=== PATIENT | female | born 1980 | race African-American/Black ===

== ENCOUNTER 2022-09-04 16:36 | Emergency (ER) | payer SELFPAY ==
[2022-09-04 16:49] VITALS: BP 203/102; PULSE 88; RESP 16; TEMP 37.2; O2SAT 97
--- NOTE | 2022-09-04 16:49 | ED.SKABFB ---
HPI - Skin/Abscess/Foreign Bdy General Chief complaint: Skin/Abscess/Foreign Body Stated complaint: Rash Time Seen by Provider: 09/04/22 16:49 Source: patient Mode of arrival: ambulatory Limitations: no limitations History of Present Illness HPI narrative: Patient is a 42-year-old female that presents with full body itching feeling like she is being stuck with tiny needles. Has been taking Claritin and Benadryl daily for the last 3 days. Have washed all other sheets and denies new environmental factors. Denies any shortness of breath. Concern for scabies due to working in [employer]. Related Data Allergies Allergy/AdvReac Type Severity Reaction Status Date / Time No Known Allergies Allergy Verified 09/04/22 18:10 Review of Systems Review of Systems: All systems reviewed & are unremarkable except as noted in HPI and below Constitutional: Constitutional: Denies body ache(s), Denies chills, Denies fatigue, Denies fever(s), Denies headache(s), Denies malaise and Denies weakness Eyes: Eyes: Denies blurry vision, Denies irritation and Denies loss of vision ENT: Denies otalgia, Denies headache(s), Denies nasal discharge, Denies sinus pain and Denies sore throat Cardiovascular: Cardiovascular: Denies chest pain, Denies irregular heart rhythm and Denies dyspnea Respiratory: Respiratory: Denies dyspnea Gastrointestinal: Gastrointestinal: Denies abdominal pain, Denies melena, Denies hematochezia, Denies diarrhea, Denies nausea and Denies vomiting Musculoskeletal: Musculoskeletal: Denies back pain, Denies myalgias and Denies arthralgias Integumentary/Breasts: Skin/Breast: Reports pruritus and Denies rash Neurologic: Denies headache(s), Denies loss of vision and Denies weakness Psychiatric: Psychiatric: Reports no additional psychiatric complaints Endocrine: Endocrine: Denies fatigue PMFSH Comments At time of signature, agree with nursing past medical, surgical, social and family history. There is no relevant family history pertinent to the presenting complaint. Exam Const: General: cooperative, healthy appearing, comfortable, no acute distress and well nourished Nutritional Appearance: well nourished Orientation/consciousness: patient oriented x3 Limitations: no limitations HENMT: Head: normal to inspection, normocephalic and atraumatic Ears: hearing grossly normal bilaterally and external ears normal Face/Nose/Sinus: Normal external nose present, normal facial exam and face symmetric Face and sinus: normal facial exam and face symmetric Mouth: Yes lip normal Eyes: General: appearance normal, both eyes and all related structures Alignment and Position: alignment normal and position normal Periorbital: periorbital findings normal Eyelids: eyelids normal Pupils: Equal, round and reactive pupils present EOM: EOMs intact bilaterally Neck: Neck: normal visual inspection, full ROM and supple Chest: Chest palpation & inspection: normal inspection of the chest Resp: Effort & Inspection: normal respiratory effort and able to speak in complete sentences Auscultation: clear to auscultation bilaterally Cardio: Rate: regular rate Rhythm: regular rhythm Heart sounds: S1 normal heart sound present and S2 normal heart sound present GI: Inspection: normal to inspection Skin: General skin exam: normal color and no rashes or lesions noted Neuro: General: patient oriented x3 and moves all extremities Cranial nerves: Yes Equal, round and reactive pupils present Speech: normal speech Gait exam (Neuro): Normal gait present Extrem: General: normal to inspection, full ROM and no edema Psych: Appearance: grossly normal and well kempt Mental Status: mental status grossly normal Speech and movement: Normal speech and movement present Affect: normal affect Attitude: cooperative Thought process: Normal thought process present Course Course Emergency Course: Patient is aware of diagnosis, understands and agrees to treatmen
[2022-09-04 18:03] VITALS: BP 224/112; PULSE 75; O2SAT 100
== END 2022-09-04 18:15 | disposition home or self-care (01) ==
PROVIDERS: Emergency Provider Nurse Practitioner Family
DX: L29.9 Pruritus, unspecified (principal); T78.40XA Allergy, unspecified, initial encounter; I10 Essential (primary) hypertension
CPT/HCPCS: 99213; G0463

== ENCOUNTER 2022-09-15 07:09 | Emergency (ER) | payer SELFPAY ==
[2022-09-15] VITALS (15 sets, daily range): BP systolic 191–234; BP diastolic 101–128; PULSE 67–107; RESP 10–27; TEMP 36.4–36.8; O2SAT 100
--- NOTE | ~2022-09-15 | XR_ITS ---
Portable chest x-ray Comparison: None Clinical History: Chest pain Findings: Lungs are clear, without focal consolidation or pleural effusion. Cardiomediastinal silho uette is stable. Bones and soft tissues are unremarkable. Impression: Normal chest. Reviewed, dictated and finalized at location M. Impression: Normal chest.
--- NOTE | 2022-09-15 07:26 | ECG_ITS ---
Measurements Intervals [place] Rate: 85 P: 39 [place]: 139 QRS: -13 QRSD: 98 T: 101 QT: 375 QTc: 446 Interpretive Statements SINUS RHYTHM POSSIBLE LEFT ATRIAL ENLARGEMENT [-0.1mV P-WAVE IN V1/V2] LEFT VENTRICULAR HYPERTROPHY AND ST-T CHANGE [VOLTAGE CRITERIA PLUS ST/T ABNORMALITY] NO PREVIOUS ECG AVAILABLE FOR COMPARISON Electronically Signed On 09-15-2022 15:03:29 CDT by Melanie Thomas M.D.
--- NOTE | 2022-09-15 07:26 | ED.ARRPALP ---
HPI - Arrhythmia/Palpitations General Chief Complaint: Chest Pain Stated Complaint: CP Time Seen by Provider: 09/15/22 07:09 History of Present Illness HPI narrative: Pt presents with feeling of heart racing and feeling lightheaded and dizzy this morning while getting ready for work. Pt denies CP or SOB. Pt denies LOC or SOLOIRO. Pt feels better now. Related Data Allergies Allergy/AdvReac Type Severity Reaction Status Date / Time No Known Allergies Allergy Verified 09/04/22 18:10 Review of Systems Review of Systems: All systems reviewed & are unremarkable except as noted in HPI and below Exam Const: General: healthy appearing Nutritional Appearance: well nourished Orientation/consciousness: patient oriented x3 Limitations: no limitations Eyes: EOM: EOMs intact bilaterally Resp: Effort & Inspection: normal respiratory effort Auscultation: clear to auscultation bilaterally Cardio: Rate: tachycardic Rhythm: regular rhythm GI: Auscultation: normal bowel sounds Skin: General skin exam: normal color Rashes: no rashes Neuro: General: patient oriented x3, moves all extremities, no meningeal signs and CN's II-XI intact bilaterally Cranial nerves: Yes Nystagmus not present Speech: normal speech Extrem: General: normal to inspection Psych: Mental Status: mental status grossly normal Affect: normal affect Attitude: cooperative Course Course Emergency Course: Pt feels fine. Pt will check BP later today when not in ER. If still high will follow up with PCP. Placed on holter. Vital Signs Vital signs: Vital Signs Pulse Rate 86 09/15/22 07:16 Respiratory Rate 12 09/15/22 07:16 Temperature 97.6 F 09/15/22 10:40 Pulse Rate 68 09/15/22 10:40 Respiratory Rate 16 09/15/22 10:40 Blood Pressure 191/103 H 09/15/22 10:40 Pulse Oximetry 100 09/15/22 10:40 Oxygen Delivery Room Air 09/15/22 07:35 MDM - Arrhythmia/Palpitations MDM Narrative Medical decision making narrative: labs look good and pt better after ekg unremarkable and labs slight low k which was treated, WBC seems stress reaction and not infectious. Pt will follow BP and track away from ER. If remains elevated needs to follow up for medication adjustment. Pt agrees with plan to place on holter and discharge home Differential Diagnosis Differential diagnosis: Likely palpitations, anxiety, sinus tachycardia, artial fibrillation and WPW Medical Records Attestation: I reviewed the patient's medical records. Medical records narrative: no prior EKG Lab Data Attestation: I reviewed the patient's lab results. 09/15/22 07:31 09/15/22 07:31 Labs: Lab Results 09/15/22 Range/Units 07:31 WBC 16.5 H (4.5-10.0) K/mm3 RBC 4.73 (4.2-5.4) M/mm3 Hgb 10.2 L (12.0-15.0) g/dL Hct 33.9 L (37.0-47.0) % MCV 71.7 L (80-100) fl MCH 21.6 L (26-34) pg MCHC 30.1 L (32-36) g/dl RDW 17.0 H (11.5-14.5) % Plt Count 511 H (150-375) k/mm3 MPV 9.8 (7.4-10.4) fl Immature Gran % (Auto) 0.4 (0-0.5) % Neut % (Auto) 73.3 H (45.5-73.1) % Lymph % (Auto) 18.7 (18.3-44.2) % Mcduffie % (Auto) 5.8 (2.6-8.5) % Eos % (Auto) 1.1 (0-4.4) % Baso % (Auto) 0.7 (0.2-1.2) % Lymph # (Auto) 3.09 (0.9-3.2) K/mm3 [place]duffie # (Auto) 1.0 H (0.1-0.6) K/mm3 Eos # (Auto) 0.2 (0-0.3) K/mm3 Baso # (Auto) 0.1 (0.0-0.1) K/mm3 Abs Immat Gran (auto) 0.07 H (0.00-0.031) K/mm3 Absolute Neuts (auto) 12.1 H (1.3-6.7) K/mm3 Absolute Nucleated RBC 0.0 (0.0-0.012) K/mm3 Nucleated RBC % 0.0 (0.0-0.2) % Platelet Estimate Adequate (Adequate) Hypochromasia 1+ (NORMAL) Anisocytosis 1+ (NORMAL) Target Cells 1+ (NORMAL) Ovalocytes 1+ (NORMAL) Schistocytes None seen (NORMAL) PT 12.9 (11.1-14.7) Seconds INR 0.9 APTT 22.3 (22.3-36.8) SECONDS Sodium 136 L (137-145) mmol/L Potassium 3.0 L (3.4-5.0) mmol/L Chloride 95 L (98-107) mmol/L Carbon Dioxide 35 H
[2022-09-15] MEDS: SODIUM CHLORIDE 0.9% IV 1,000 ML 999 ML IV CONT (07:34)
[2022-09-15 07:37] LABS: Basophils Absolute Auto 0.1 K/mm3 (0.0-0.1); Basophils Percent Auto 0.7 % (0.2-1.2); Eosinophils Absolute Auto 0.2 K/mm3 (0-0.3); Eosinophils Percent Auto 1.1 % (0-4.4); Hematocrit 33.9 % (37.0-47.0); Hemoglobin 10.2 g/dL (12.0-15.0); Immature Granulocyte Absolute 0.07 K/mm3 (0.00-0.031); Immature Granulocyte Percent A 0.4 % (0-0.5); Lymphocytes Absolute Auto 3.09 K/mm3 (0.9-3.2); Lymphocytes Percent Auto 18.7 % (18.3-44.2); Mean Corpuscular HGB Conc 30.1 g/dl (32-36); Mean Corpuscular Hemoglobin 21.6 pg (26-34); Mean Corpuscular Volume 71.7 fl (80-100); Mean Platelet Volume 9.8 fl (7.4-10.4); Monocytes Percent Auto 5.8 % (2.6-8.5); Neutrophils Absolute Auto 12.1 K/mm3 (1.3-6.7); Neutrophils Percent Auto 73.3 % (45.5-73.1); Platelet Count Result 511 k/mm3 (150-375); Red Blood Count 4.73 M/mm3 (4.2-5.4); White Blood Count 16.5 K/mm3 (4.5-10.0)
[2022-09-15 07:48] LABS: Alanine Aminotransferase 31 U/L (6-35); Albumin Level 4.6 g/dL (3.5-5.1); Alkaline Phosphatase 128 U/L (38-126); Anion Gap 6 mmol/L (8-16); Aspartate Amino Transferase 40 U/L (14-36); Bilirubin,Total 0.8 mg/dL (0.2-1.3); Blood Urea Nitrogen 12 mg/dL (7-17); Calcium 9.4 mg/dL (8.4-10.2); Carbon Dioxide 35 mmol/L (22-30); Chloride 95 mmol/L (98-107); Estimated CRCL calculation 87 ml/min; Estimated Glomerular Filt Rate > 60; Glucose 146 mg/dL (65-110); Sodium 136 mmol/L (137-145)
[2022-09-15 07:52] LABS: Platelet Estimate Adequate (Adequate)
[2022-09-15 07:53] LABS: Anisocytosis 1+ (NORMAL); Hypochromasia 1+ (NORMAL); Ovalocytes 1+ (NORMAL); Schistocytes None Seen (NORMAL); Target Cells 1+ (NORMAL)
[2022-09-15 07:54] LABS: INR 0.9; Prothrombin Time 12.9 Seconds (11.1-14.7)
[2022-09-15 07:55] LABS: Partial Thromboplastin Time 22.3 SECONDS (22.3-36.8)
[2022-09-15 07:59] LABS: Troponin I < 0.012 ng/mL (0.000-0.034)
[2022-09-15] MEDS: POTASSIUM CHLORIDE 20 MEQ ER TABLET PO (09:25)
[2022-09-15] MEDS: METOPROLOL SUCCINATE EXT REL 50 MG TABCR PO (09:26)
== END 2022-09-15 10:46 | disposition home or self-care (01) ==
PROVIDERS: Emergency Provider Emergency Medicine
DX: R00.2 Palpitations (principal); I51.7 Cardiomegaly; R94.31 Abnormal electrocardiogram [ECG] [EKG]
CPT/HCPCS: 36415; 71045; 80053; 84484; 85025; 85610; 85730; 93005; 93225; 93226; 96360; 99284; A9270; J7030

== ENCOUNTER 2022-09-17 08:08 | Observation (INO) | payer SELFPAY ==
[2022-09-17] VITALS (32 sets, daily range): BP systolic 145–224; BP diastolic 85–119; PULSE 64–100; RESP 12–22; TEMP 36.1–36.6; O2SAT 98–100; BMI 27.1
--- NOTE | ~2022-09-17 | MR_ITS ---
MRI of the thoracic spine Clinical History: Paresthesia Technique: Axial T2-weighted and gradient images, and sagittal T1-weighted, T2-weighted, and STIR eden ges were acquired. Following intravenous administration of 14 cc MultiHance gadolinium, T1-weighted f at-sat imaging was performed in the axial and sagittal planes. Findings: There is no fracture or subluxation of the thoracic spine. Vertebral bodies maintain normal height and alignment. No focal/suspicious bone marrow signal abnormality seen. No disc bulge or herniation seen at any thoracic level. No spinal canal stenosis or cord compression identified. No abnormal signal seen in the spinal cord. No epidural mass or collection seen. Paravertebral soft t issues are unremarkable. No abnormal postcontrast enhancement identified. Impression: Unremarkable exam. Reviewed, dictated and finalized at [facility]. Impression: Unremarkable exam.
--- NOTE | ~2022-09-17 | MR_ITS ---
MRI of the brain Clinical History: Paresthesia, left lower extremity numbness Technique: Axial and sagittal T1-weighted images were acquired. These were followed by axial T2-weigh poppy, diffusion weighted, gradient, and FLAIR images. Findings: No abnormal signal seen in the brain parenchyma. No acute infarct, intracranial hemorrhage, or mass lesion. Ventricles and subarachnoid spaces are unremarkable. Orbits are unremarkable. Paranasal sinuses and m astoid air cells are clear. Major intracranial flow voids are intact. Sagittal midline structures are intact. IMPRESSION: Unremarkable exam. Reviewed, dictated and finalized at location M. IMPRESSION: Unremarkable exam.
--- NOTE | ~2022-09-17 | MR_ITS ---
MRI of the cervical spine Clinical History: Paresthesia Technique: Axial T2-weighted and gradient images, and sagittal T1-weighted, T2-weighted, and STIR eden ges were acquired. Following intravenous administration of 14 cc MultiHance gadolinium, T1-weighted f at-sat imaging was performed in the axial and sagittal planes. Findings: There is no fracture or subluxation of the cervical spine. There is mild reversal of the no rmal cervical lordosis. No focal/suspicious bone marrow signal abnormality seen. There is mild diffus e T1 hypointensity, which could reflect underlying anemia. At C2-C3 and C3-C4, there is no disc bulge or herniation. No spinal canal stenosis, cord compression, or neural foraminal narrowing at these levels. At C4-C5, there is minimal disc osteophyte complex, with probable minimal flattening the ventral cord . Bilateral neural foramina are preserved. At C5-C6, there is mild disc osteophyte complex with probable minimal flattening the ventral cord. Bi lateral neural foramina are preserved. At C6-C7, there is no disc bulge or herniation. No spinal canal stenosis, cord compression, or neural foraminal narrowing. No abnormal signal seen in the spinal cord. No epidural mass or collection. Paravertebral soft tissue s are unremarkable. No abnormal postcontrast enhancement identified. Impression: Minimal flattening of the ventral cord at C4-C5 and C5-C6 related to mild disc osteophyte complexes a t these levels. Reviewed, dictated and finalized at [facility]. Impression: Minimal flattening of the ventral cord at C4-C5 and C5-C6 related to mild disc osteophyte complexes at these levels.
--- NOTE | ~2022-09-17 | US_ITS ---
EXAMINATION: US retroperitoneal duplex ltd DATE: 09/18/2022 10:41 INDICATION: Hypertensive urgency TECHNIQUE: Multiple grayscale, color Doppler, and pulsed Doppler images of the kidneys and renal steffen andrew were obtained. COMPARISON: None. FINDINGS: The right renal artery peak systolic velocity is 154 cm/s in the proximal segment, 178 cm/s in the mi d segment, and 134 cm/s in the distal segment. The left renal artery peak systolic velocity is 96 cm/ s in the proximal segment, 93 cm/s in the mid segment, and under 28 cm/s in the distal segment. Incid entally noted 1.6 cm anechoic cyst at the upper pole the right kidney. The bladder is partially decom pressed. Visualized portions of the anteverted uterus is unremarkable. IMPRESSION: 1. No Doppler evidence of renal artery stenosis. Reviewed, dictated and finalized at location A.
--- NOTE | ~2022-09-17 | CT_ITS ---
Non-contrast Head CT History: Headache, paresthesia Technique: Axial non-contrast imaging of the brain was performed. Dose reduction technique was used on this scan by utilizing automated exposure control and iterative reconstruction technique. The dose -length product (DLP) was 605.33 mGy-cm. Findings: There is no evidence of intracranial hemorrhage, mass lesion, or acute infarct. Brain par enchyma appears normal. The ventricles and subarachnoid spaces are normal in size. The calvarium ap pears normal. The visualized paranasal sinuses and mastoid air cells are clear. Impression: No significant abnormality seen. Reviewed, dictated and finalized at location . Impression: No significant abnormality seen.
--- NOTE | 2022-09-17 08:18 | ECG_ITS ---
Measurements Intervals [place] Rate: 90 P: 34 [place]: 131 QRS: -7 QRSD: 86 T: 142 QT: 356 QTc: 437 Interpretive Statements SINUS RHYTHM LEFT VENTRICULAR HYPERTROPHY AND ST-T CHANGE [VOLTAGE CRITERIA PLUS ST/T ABNORMALITY] COMPARED TO ECG 09/15/2022 07:15:02 NO SIGNIFICANT CHANGES Electronically Signed On 09-17-2022 13:23:28 CDT by Melanie Thomas M.D.
[2022-09-17 08:43] LABS: Basophils Absolute Auto 0.1 K/mm3 (0.0-0.1); Basophils Percent Auto 0.8 % (0.2-1.2); Eosinophils Absolute Auto 0.3 K/mm3 (0-0.3); Eosinophils Percent Auto 2.4 % (0-4.4); Hematocrit 33.8 % (37.0-47.0); Hemoglobin 10.1 g/dL (12.0-15.0); Immature Granulocyte Absolute 0.06 K/mm3 (0.00-0.031); Immature Granulocyte Percent A 0.4 % (0-0.5); Lymphocytes Absolute Auto 3.54 K/mm3 (0.9-3.2); Lymphocytes Percent Auto 26.1 % (18.3-44.2); Mean Corpuscular HGB Conc 29.9 g/dl (32-36); Mean Corpuscular Hemoglobin 22.1 pg (26-34); Mean Corpuscular Volume 73.8 fl (80-100); Mean Platelet Volume 10.3 fl (7.4-10.4); Monocytes Absolute Auto 0.9 K/mm3 (0.1-0.6); Monocytes Percent Auto 6.3 % (2.6-8.5); Neutrophils Absolute Auto 8.7 K/mm3 (1.3-6.7); Platelet Count Result 485 k/mm3 (150-375); Red Blood Count 4.58 M/mm3 (4.2-5.4); Red Cell Distribution Width 17.4 % (11.5-14.5); White Blood Count 13.6 K/mm3 (4.5-10.0)
--- NOTE | 2022-09-17 08:50 | PC.NURSE ---
EDP at bedside to assess pt.
[2022-09-17 08:55] LABS: Platelet Estimate Increased (Adequate)
[2022-09-17 08:56] LABS: Alanine Aminotransferase 26 U/L (6-35); Albumin Level 4.7 g/dL (3.5-5.1); Alkaline Phosphatase 116 U/L (38-126); Anion Gap 8 mmol/L (8-16); Anisocytosis 1+ (NORMAL); Aspartate Amino Transferase 31 U/L (14-36); Bilirubin,Total 0.6 mg/dL (0.2-1.3); Blood Urea Nitrogen 8 mg/dL (7-17); Calcium 9.6 mg/dL (8.4-10.2); Carbon Dioxide 31 mmol/L (22-30); Chloride 99 mmol/L (98-107); Estimated CRCL calculation 86 ml/min; Estimated Glomerular Filt Rate > 60; Glucose 180 mg/dL (65-110); Hypochromasia 1+ (NORMAL); Microcytosis 1+ (NORMAL); Potassium 3.2 mmol/L (3.4-5.0); Schistocytes None Seen (NORMAL); Sodium 138 mmol/L (137-145)
[2022-09-17 09:02] LABS: Appearance Urine Clear (Clear); Bacteria Urine None Seen /hpf; Bilirubin Urine Negative (Negative); Blood Urine Negative (Negative); Color Urine Yellow (Yellow); Glucose Urine UA 2+ mg/dL (Negative); Ketones Urine 1+ mg/dL (Negative); Leukocyte Esterase Ur Negative LEU/UL (Negative); Nitrate Urine Negative (Negative); Non Pathogenic Casts 0-2; Protein Urine 1+ mg/dL (Negative); RBC Urine 0-2 /hpf (0-2); Specific Grav Ur 1.022 (1.001-1.035); Squamous Epithelial Cell Urine Occasional /hpf (Few); WBC Urine 0-5 /hpf; pH Urine 6.5 (5.0-9.0)
[2022-09-17 09:05] LABS: Add Urine Microscopic? YES
[2022-09-17] MEDS: hydrALAZINE HCL 20 MG/ML VIAL 10 MG IV PUSH (09:15)
--- NOTE | 2022-09-17 10:17 | ED.GENADULT ---
HPI - General Adult General Chief complaint: Unspecified Stated complaint: tingling Time Seen by Provider: 09/17/22 08:22 History of Present Illness HPI narrative: Patient is a 42-year-old female who presents ER with whole body tingling. She reports she was seen here couple days ago for elevated heart rate and also tingling in her legs. She reports that her blood pressures been running in the systolics around 200 mmHg. This is not improved since she has been at home. Today the tingling now encompasses her entire body and is distressing. She also has mild headache. Patient takes metoprolol at home daily to treat blood pressure. Last dose was yesterday. She has no chest pain or chest pressure. No exertional discomfort. No loss of consciousness. No focal numbness or weakness in arm or leg. Patient was given a Holter monitor but has not had any palpitations. Related Data Home Medications Medication Instructions Recorded Confirmed metoprolol succinate 50 mg 50 mg PO DAILY 09/17/22 09/17/22 tablet,extended release 24 hr Allergies Allergy/AdvReac Type Severity Reaction Status Date / Time No Known Allergies Allergy Verified 09/17/22 08:18 Review of Systems Review of Systems: All systems reviewed & are unremarkable except as noted in HPI and below Constitutional: Constitutional: Denies chills and Denies fever(s) ENT: Denies nasal congestion and Denies sore throat Cardiovascular: Cardiovascular: Denies chest pain, Denies rapid heart rate and Denies radiating jaw, neck or arm pain Gastrointestinal: Gastrointestinal: Denies abdominal pain, Denies nausea and Denies vomiting Neurologic: Reports headache(s), Denies lack of coordination, Denies focal weakness, Denies Sensory deficit (Neuro) and Reports tingling PMFSH Past Medical History Medical History (Updated 09/17/22 @ 14:31 by Roula Vasquez PA-C) Hypertension Surgical History Surgical History (Updated 09/17/22 @ 17:16 by Roula Vasquez PA-C) History of tubal ligation Family History Family History (Updated 09/17/22 @ 17:17 by Roula Vasquez PA-C) Sibling Diabetes mellitus Hypertension Grandparent Diabetes mellitus Hypertension Mother Hypertension Cerebrovascular accident Social History Social History (Updated 09/17/22 @ 17:18 by Roula Vasquez PA-C) Social History: Surrogate medical decision maker: Darrell Yan, spouse. Code status: Full code. Years smoked: 20 Smoking status: Current every day smoker Tobacco type: cigarettes Second hand tobacco smoke exposure: No Alcohol intake: current Drinks per week: 5 Substance use: never Lack of Transportation: No Lack of Food: Never True Current Housing: I Have Housing Concerned About Future Housing: No Difficulty Paying Gas/Electric Bills: No Difficulty Paying for Meds: No Currently Unemployed: No Education: Decline to Answer Difficulty w/ Childcare or Family Care: No Additional living arrangements comments: Lives with and 2 of their children in [place]. 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 Spiritual care concerns: No Exam Narrative: GENERAL: Well-appearing, well-nourished, and in no acute distress. HEAD: Normocephalic, atraumatic. EYES: PERRL and EOMI. ENT: Mucous membranes moist. CHEST: Clear to auscultation. No respiratory distress. HEART: Regular rate and rhythm. Normal peripheral pulses. ABDOMEN: Soft, nontender, nondistended. EXTREMITIES: Normal range of motion. No edema. SKIN: Warm, dry, no rash. NEURO: No upper or lower extremity drift. Normal finger-nose testing and [id number] testing. Gross sensation intact. No facial droop. Clear speech without expressive aphasia. Alert and oriented x3. PSYCH: Normal mood and affect. Course Course Emergency Course: Discussed case with Dr. Arango at the hospitalist service. Admit for observation. Patient is ta
--- NOTE | 2022-09-17 11:01 | PC.NURSE ---
Patient report given to ROLANDO Katz. All questions answered and care of patient transferred.
[2022-09-17] MEDS: amLODIPine BESYLATE 2.5 MG TABLET PO ×2 (11:08→20:45)
[2022-09-17] MEDS: METOPROLOL SUCCINATE EXT REL 50 MG TABCR PO (11:08)
[2022-09-17] MEDS: HYDROcodone/acetaminophen (*CRX) 5-325 MG TABLET 1 TAB PO ×2 (11:13→19:54)
--- NOTE | 2022-09-17 13:36 | PC.NURSE ---
ordered pt. lunch tray.
--- NOTE | 2022-09-17 14:18 | PM.IMHP ---
H&P: HPI History of Present Illness Date/Time: 09/17/22 14:00 Chief Complaint: Paresthesias. Narrative: This is a 42-year-old female with hypertension who presented to the emergency department via private vehicle from home for evaluation of paresthesias. The patient provides the following history. She has feelings of pins and needles ?everywhere, even in my face? with sensations of numbness in the left legs and upper extremities. She was evaluated at urgent care on 09/04/2022 with itching and feelings as though she was being stuck with tiny needles. 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 None the less she was discharged with permethrin cream and 5 days of prednisone 40 mg. She was seen in the ED just 2 days ago with sensations of racing heart, lightheadedness, and dizziness while getting ready for work. Her potassium was a bit low at that time and was replaced. She felt better on discharge and she was sent home with a 24 hour Holter monitor. Unfortunately she continues to have random episodes of pins and needles, numbness, and she also reports having a pretty significant headache with occasional dizziness. It should be noted that her blood pressures have been persistently elevated in the 210-220s over low 100s with each of these recent visits. She is on metoprolol 50 mg daily of which she states compliance. She was diagnosed with hypertension at the age of 22 and she admits that she only checks her blood pressure once every couple of months however it is typically in the 130s to 140 systolic. Given her continued symptoms and uncontrolled hypertension she is being admitted for further treatment and evaluation. Brain CT today showed no acute findings. EKG shows a sinus rhythm with changes consistent with left ventricular hypertrophy. In the ED she received a dose of IV hydralazine 10 mg, her p.o. dose of metoprolol, and amlodipine 2.5 mg. Her blood pressure has since improved to 180/99. At the time my evaluation she complains of a diffuse, throbbing headache. She continues to have paresthesias in the upper extremities, left leg, and she also reports sensation changes on the left side of her trunk ?it feels like it is wet in this area but it is not.? She denies vertigo, focal weakness, blurry vision, facial droop, difficulty speaking and swallowing, chest pain, palpitations, and sweats, racing heart, flushing, and weight changes. She has no known history of thyroid disease, multiple sclerosis, Enzo's, hyperaldosteronism, or sleep apnea. Review of Systems Review of Systems: Twelve systems were reviewed. No fever, chills, or sweats. No recent cold or flu symptoms. Last menstrual period was 09/06/2022. She does tend to have heavier periods that is not new for her. She has no known history anemia and has never had a blood transfusion. No hematuria. She has not noticed foamy urine. Except as documented, all other systems were reviewed and are negative. [facility] Past Medical History Medical History (Updated 09/17/22 @ 14:31 by Roula Vasquez PA-C) Hypertension Surgical History Surgical History (Updated 09/17/22 @ 17:16 by Roula Vasquez PA-C) History of tubal ligation Family History Family History (Updated 09/17/22 @ 17:17 by Roula Vasquez PA-C) Sibling Diabetes mellitus Hypertension Grandparent Diabetes mellitus Hypertension Mother Hypertension Cerebrovascular accident Social History Social History (Updated 09/17/22 @ 17:18 by Roula Vasquez PA-C) Social History: Surrogate medical decision maker: Darrell Yan, spouse. Code status: Full code. Years smoked: 20 Smoking status: Current every day smoker Tobacco type: cigarettes Second hand tobacco smoke exposure: No Alcohol intake: current Drinks per week: 5 Substance use: never Lack of Transportation: No Lack of Food: Never True Current Housing: I Have Housing Concerned Abo
[2022-09-17] MEDS: POTASSIUM CHLORIDE 20 MEQ ER TABLET 40 MEQ PO (15:17)
--- NOTE | 2022-09-17 15:46 | ADMGEN ---
This patient, Sandra Yan, was admitted to IMU Room 205-01 @ 1545. Patient oriented to hospital policies and general routines including ID bracelet, bed and alarms, visiting hours, pain management, procedures, bathroom and other care routines, personal items, smoking policy, room service/diet, and visiting hours. Information on how to activate the Rapid Response Team has been discussed. Patient are encouraged to report perceived risks to care and to ask questions if they do not understand what they are told or what they should do.
--- NOTE | 2022-09-17 16:15 | WPDHOLTEREM ---
Holter/Event Monitor Holter/Event Monitor Date of procedure: 09/15/22 Holter/Event Procedure: 24 Hr Holter Monitor Indications: Fast Heart Rate Conclusion: 1. 24 hour holter monitor on 09/15/22. 2. Underlying rhythm is sinus rhythm. HR range 52-115 bpm; average HR 68 bpm. 3. There are 1 premature supraventricular complex and 5 supraventricular couplets. No supraventricular tachycardia. 4. There is 1 premature ventricular complex. No ventricular tachycardia. 5. No sinoatrial or atrioventricular blocks. No significant pauses greater than 2 seconds. 6. No symptoms available for correlation.
[2022-09-17] MEDS: hydrALAZINE HCL 20 MG/ML VIAL 5 MG IV PUSH (17:11)
[2022-09-17 17:33] LABS: Hemoglobin A1C 5.9 % (<5.7)
[2022-09-17 17:35] LABS: Iron 36 ug/dL (37-170)
[2022-09-17 17:46] LABS: Percent Iron Saturation 7 % (20-50)
[2022-09-17 18:11] LABS: Folic Acid 8.6 ng/mL (2.76->20)
[2022-09-17 18:12] LABS: Ferritin 8.55 ng/mL (6.24-137)
[2022-09-17] MEDS: ACETAMINOPHEN 325 MG TABLET 650 MG PO (20:46)
[2022-09-18] VITALS (14 sets, daily range): BP systolic 171–218; BP diastolic 90–108; PULSE 62–86; RESP 16–20; TEMP 36.4–36.8; O2SAT 98–100
--- NOTE | 2022-09-18 | ECHO_ITS ---
Patient Info Name: Sandra Yan Age: 42 years : 1980 Gender: Female Ht: 64 in Wt: 157 lbs BSA: 1.81 m2 HR: 64 bpm BP: 171 / 90 mmHg Heart Rhythm: Sinus Rhythm Technical Quality: Good Exam Date: 09/18/2022 8:53 AM Exam Location: [facility] [place] Card Pulmonary Patient Status: Inpatient Admit Date: 09/17/2022 Staff Ordering Physician: Roula Vasquez PA-C Assessment Specialist: Shayy Eaton RDCS Attending Provider: Lalito Arango MD Referring Physician: Christina WILLS; Exam Type: CA echo doppler color flow Study Info Indications - uncontrolled htn Complete two-dimensional, color flow and Doppler transthoracic echocardiogram is performed. Summary 1. Complete two-dimensional, color flow and Doppler transthoracic echocardiogram is performed. 2. Left ventricular chamber dimension is normal. 3. Left ventricular systolic function is normal, estimated at 65-70%. 4. There is moderate concentric increased left ventricular wall thickness. 5. The left ventricular diastolic function is grade I diastolic dysfunction. 6. E/e' 16 is elevated. 7. Left atrial chamber dimension is mildly enlarged. 8. There is trace mitral valve regurgitation. 9. There is trace tricuspid valve regurgitation. 10. No pulmonary hypertension, estimated pulmonary arterial systolic pressure is 23 mmHg. Left Ventricle E/e' 16 is elevated. Left ventricular chamber dimension is normal. Left ventricular systolic function is normal, estimated at 65-70%. There is moderate concentric increased left ventricular wall thickness. The left ventricular diastolic function is grade I diastolic dysfunction. Right Ventricle Right ventricular systolic function is normal and with normal TAPSE 2.2 cm. Right ventricular chamber dimension is normal. Left Atria Left atrial chamber dimension is mildly enlarged. Right Atria Right atrial chamber dimension is normal. Aortic Valve The aortic valve is trileaflet. There is no aortic valve stenosis. There is no aortic valve regurgitation. Pulmonic Valve There is no pulmonic regurgitation. Mitral Valve There is no mitral valve stenosis. There is trace mitral valve regurgitation. Tricuspid Valve There is trace tricuspid valve regurgitation. No pulmonary hypertension, estimated pulmonary arterial systolic pressure is 23 mmHg. Pericardium/Pleural There is no pericardial effusion. Inferior Vena Cava Normal inferior vena cava with >50% collapse upon inspiration consistent with normal right atrial pressure, 5 mmHg. Aorta The aortic root size at the sinus of Valsalva is normal. Left Ventricular Outflow Tract Name Value Normal LVOT 2D LVOT Diameter 2.0 cm LVOT Doppler LVOT Peak Gradient 4 mmHg LVOT Mean Gradient 2 mmHg LVOT VTI 20 cm LVOT VTI/AV VTI Ratio 0.6 LVOT Stroke Volume 64 ml LVOT CO 3.8 l/min LVOT CI 2.1 l/min/m2 Pulmonic Valve Name Value Normal
[2022-09-18 05:07] LABS: Hematocrit 28.9 % (37.0-47.0); Hemoglobin 8.6 g/dL (12.0-15.0); Mean Corpuscular HGB Conc 29.8 g/dl (32-36); Mean Corpuscular Hemoglobin 22.2 pg (26-34); Mean Corpuscular Volume 74.7 fl (80-100); Mean Platelet Volume 10.1 fl (7.4-10.4); Platelet Count Result 385 k/mm3 (150-375); Red Blood Count 3.87 M/mm3 (4.2-5.4); Red Cell Distribution Width 17.6 % (11.5-14.5); White Blood Count 9.9 K/mm3 (4.5-10.0)
[2022-09-18 05:17] LABS: Anion Gap 5 mmol/L (8-16); Blood Urea Nitrogen 8 mg/dL (7-17); Calcium 8.9 mg/dL (8.4-10.2); Carbon Dioxide 30 mmol/L (22-30); Chloride 103 mmol/L (98-107); Estimated CRCL calculation 88 ml/min; Estimated Glomerular Filt Rate > 60; Glucose 122 mg/dL (65-110); Magnesium 1.9 mg/dL (1.6-2.3); Potassium 3.3 mmol/L (3.4-5.0); Sodium 138 mmol/L (137-145)
[2022-09-18] MEDS: FERROUS SULFATE 324 MG TABLET PO (09:44)
[2022-09-18] MEDS: METOPROLOL SUCCINATE EXT REL 50 MG TABCR PO (09:44)
[2022-09-18] MEDS: HYDROcodone/acetaminophen (*CRX) 5-325 MG TABLET 1 TAB PO (09:45)
[2022-09-18] MEDS: POTASSIUM CHLORIDE 20 MEQ ER TABLET 40 MEQ PO (09:45)
[2022-09-18] MEDS: amLODIPine BESYLATE 2.5 MG TABLET PO ×2 (09:59→13:24)
--- NOTE | 2022-09-18 14:17 | PCCCNOTE ---
On 09/18/22, the student, [Alma Delia Richards ], provided care and completed [facility] documentation on this patient. I have reviewed the student's documentation and agree with the findings.
[2022-09-18] MEDS: LOSARTAN POTASSIUM 25 MG TABLET PO (16:13)
--- NOTE | 2022-09-18 17:46 | PM.DS ---
DS: Admitting Diagnosis Discharge Date 09/18/22 Admitting Diagnosis Paresthesias DS: Discharge Diagnosis Discharge Diagnosis (1) Hypertensive urgency: Code(s): I16.0 - Hypertensive urgency Status: Acute (2) Paresthesia: Code(s): R20.2 - Paresthesia of skin Status: Acute (3) Microcytic anemia: Code(s): D50.9 - Iron deficiency anemia, unspecified Status: Acute (4) Hypokalemia: Code(s): E87.6 - Hypokalemia Status: Acute (5) Hyperglycemia: Code(s): R73.9 - Hyperglycemia, unspecified Status: Acute (6) Tobacco abuse: Code(s): Z72.0 - Tobacco use Status: Acute DS: Summary Hospital Course Reason for hospitalization: 42yo female with HTN who presented to the emergency department via private vehicle from home for evaluation of paresthesias. please see H&P for details. Hospital Course: Patient was having the sensation of pins and needles ?everywhere, even in my face? with sensations of numbness in the left legs and upper extremities. She was recently on 5 days of prednisone 40 mg ending around 09/09. She was seen in the ED 09/15 with sensations of racing heart, lightheadedness, and dizziness while getting ready for work. Her BP was elevaed but unclear if this was addressed. She felt better on discharge and she was sent home with a 24 hour Holter monitor. Holter monitor showing no significant dysrhythmias. Patient continued to have random episodes of pins and needles, numbness, and headache with occasional dizziness and presented back to the ED for evaluation. She is on metoprolol 50 mg daily of which she states compliance. She was diagnosed with hypertension at the age of 22 and she admits that she only checks her blood pressure once every couple of months however it is typically in the 130s to [address] showed no acute findings. EKG shows normal sinus rhythm with LVH. Echo showing EF 65-70% with Grade I diastolic dysfunction and moderate concentric LV wall thickness. No doppler evidence of renal artery stenosis. Brain MRI showing no acute findings. Cervical MRI showing minimal flattening of ther ventral cord at C4-5 and C5-6 related to mild disc osteophytes. Thoracic MRI showing no acute findings. WBC was mildly elevated but normalized on repeat. UA had 1+ protein. B12, folate and TSH normal. CMP essentially normal except for low potassium. She had mild microcytic anemia with workup consistent with iron deficiency. A1c 5.9. She was started on iron. In the ED she received a dose of IV hydralazine 10 mg, her p.o. dose of metoprolol, and amlodipine 2.5 mg. Her blood pressure has since improved to 180/99. metoprolol not the most appropriate BP medication but this was continued here. Her BP became more elevated and Norvasc advanced to 5mg and Cozaar added. Her BP did improve again. Workup for 2nd causes of HTN is underway. She now has only mild tingling in her bilateral fingers. Unclear if the MRI findings related to her upper extremity symptoms or related to carpal tunnel syndrome. Plan for neurology evaluation and possible nerve conduction study. She had improvement. She was eager for discharge. She will need to monitor her BP at home closely and return if she has worsening neurologic symptoms. She was educated about benefits of not smoking. She overall did well and was able to be discharged home on 09/18/22. Side effects of the medications were discussed. Status at Discharge Cognitive/behavioral status at discharge: stable Time Spent with Patient Time attestation: Total time spent providing and/or coordinating discharge services:38 minutes Time spent: Greater than 30 minutes Exam Narrative: AF 186/101 64 16 100% ra Gen - NARD Chest - CTA bilaterally, nml RR CV - RRR S1/S2. Tele showing no signifincat dysrythmias Abd - Soft, NT/ND, Positive BS Ext - No pedal edema Neuro - Alert and oriented. Nonfocal exam. +Phalen sign Psych - Nml moo
[2022-09-30 08:45] LABS: Renin 1.37 ng/mL/h (0.25-5.82)
--- NOTE | 2022-10-05 13:15 | PC.NURSE ---
Renin- 1.37. Dr. Nba navas.
== END 2022-09-18 18:54 | disposition home or self-care (01) ==
LOC: ANHED 10:48 → ANHIMU 11:16
PROVIDERS: Internal Medicine Pulmonary Disease; Physician Assistant; Admitting Provider Internal Medicine; Emergency Provider Emergency Medicine; Visit Provider Internal Medicine
DX: I16.0 Hypertensive urgency (principal); R20.2 Paresthesia of skin; D50.9 Iron deficiency anemia, unspecified; E87.6 Hypokalemia; F17.210 Nicotine dependence, cigarettes, uncomplicated; I11.9 Hypertensive heart disease without heart failure; R73.9 Hyperglycemia, unspecified; F10.90 Alcohol use, unspecified, uncomplicated; Z79.899 Other long term (current) drug therapy; Z82.49 Family history of ischemic heart disease and other diseases of the circulatory system
CPT/HCPCS: 36415; 70450; 70551; 72156; 72157; 80048; 80053; 81001; 82088; 82607; 82728; 82746; 83036; 83540; 83550; 83735; 84244; 84443; 85025; 85027; 93005; 93306; 93976; 96374; 96376; 99285; A9270; A9577; G0378; G0379; J0360

== ENCOUNTER 2024-05-23 05:30 | Emergency (ER) | payer SELFPAY ==
[2024-05-23] VITALS (12 sets, daily range): BP systolic 166–222; BP diastolic 90–104; PULSE 64–96; RESP 12–16; TEMP 36.5–37.2; O2SAT 98–100
--- NOTE | ~2024-05-23 | CT_ITS ---
Non-contrast Head CT History: Hypertension COMPARISON: 09/17/2022 Technique: Axial non-contrast imaging of the brain was performed. Dose reduction technique was used on this scan by utilizing automated exposure control and iterative reconstruction technique. The dose -length product (DLP) was 605.33 mGy-cm. Findings: There is no evidence of intracranial hemorrhage, mass lesion, or acute infarct. Brain par enchyma appears normal. The ventricles and subarachnoid spaces are normal in size. The calvarium ap pears normal. The visualized paranasal sinuses and mastoid air cells are clear. Impression: No significant abnormality seen. Reviewed, dictated and finalized at location . GALVANIZER Impression: No significant abnormality seen.
--- NOTE | ~2024-05-23 | XR_ITS ---
Clinical Indication: Hypertension PA view of the chest: Comparison: 09/15/2022 Findings: The lungs are clear, without evidence of focal consolidation or pleural effusion. Cardiome diastinal silhouette is within normal limits. Bones and soft tissues are unremarkable. Impression: Normal chest. Reviewed, dictated and finalized at [facility]. L PLATE PRINTER Impression: Normal chest.
--- NOTE | 2024-05-23 06:12 | ECG_ITS ---
Test Date: 2024-05-23 06:23:34 Measurements Intervals [place] Rate: 79 P: 33 WV: 144 QRS: -5 QRSD: 87 T: 5 QT: 378 QTc: 435 Interpretive Statements SINUS RHYTHM VOLTAGE CRITERIA FOR LVH CONSIDER INFERIOR INFARCT, AGE INDETERMINATE BASELINE ARTIFACT- V5-V6 ABNORMAL ECG No previous ECG available for comparison Electronically Signed On 05-23-2024 06:53:59 WATER SUPPLY ENGINEER by Houston Miranda D.O.
--- NOTE | 2024-05-23 06:24 | PC.NURSE ---
Patient states that she had some numbness in her right shoulder. Patient states she was sleeping on her right shoulder tonight and woke up with the numbness.
--- NOTE | 2024-05-23 06:25 | PC.NURSE ---
Patient states that she is supposed to take Metoprolol and Amlodipine for her high blood pressure, but has not for months.
--- NOTE | 2024-05-23 07:09 | ED_ITS ---
HPI - Recheck/Abnormal Lab/Rx General Chief Complaint: Recheck/Abnormal Lab/Rx Stated Complaint: high bp Time Seen by Provider: 05/23/24 07:06 Source: patient and family Mode of arrival: ambulatory Limitations: no limitations History of Present Illness HPI narrative: 44 years old female came to the ED by private car complaining of numbness at the right side of the neck noticed yesterday. History of hypertension, of blood pressure medications, metoprolol and Norvasc for months, can not afford. Patient smokes cigarettes, drink alcohol occasionally, denies drug use. Patient denies any chest pain or shortness of breath or focal neuro deficit. Related Data Home Medications ?Medication ?Instructions ?Recorded ?Confirmed ?Last Taken ?Type metoprolol succinate 50 mg 50 mg PO DAILY 09/17/22 05/23/24 09/16/22 09:00 History tablet,extended release 24 hr 50 MG Allergies Allergy/AdvReac Type Severity Reaction Status Date / Time No Known Allergies Allergy Verified 05/23/24 06:26 Review of Systems 2 Review of Systems: All systems reviewed & are unremarkable except as noted in HPI and below PMFSH Past Medical History Medical History Hypertension Surgical History Surgical History History of tubal ligation Family History Family History Sibling Diabetes mellitus Hypertension Grandparent Diabetes mellitus Hypertension Mother Hypertension Cerebrovascular accident Social History Social History Social History: Surrogate medical decision maker: Darrell Yan, spouse. Code status: Full code. Years smoked: 20 Smoking status: Current every day smoker Tobacco type: cigarettes Second hand tobacco smoke exposure: No Alcohol intake: current Drinks per week: 5 Substance use: never Lack of Transportation: No Lack of Food: Never True Current Housing: I Have Housing Concerned About Future Housing: No Difficulty Paying Gas/Electric Bills: No Difficulty Paying for Meds: No Currently Unemployed: No Education: Decline to Answer Difficulty w/ Childcare or Family Care: No Additional living arrangements comments: Lives with and 2 of their children in [place]. 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 Spiritual care concerns: No Exam 2 Narrative: General appearance: Well-developed, well-nourished Skin: Normal color Head: Normocephalic, nontraumatic Eyes: Clear conjunctiva ENT: Oropharynx normal, ears normal, nose normal Neck: Supple, nontender Chest and respiratory: Airway patent, no respiratory distress, no accessory muscle use Heart: Regular rate/rhythm Abdomen: Soft, nontender, no organomegaly, quiet bowel sounds Vascular: Normal peripheral pulses, normal capillary refill. Musculoskeletal: Normal range of motion, nontender back Neurologic: Alert and oriented ?3, BRAZER FURNACE is normal as tested, no gross motor deficit Course Vital Signs Vital signs: Vital Signs Temperature 37.2 C 05/23/24 05:32 Pulse Rate 96 05/23/24 05:32 Respiratory Rate 16 05/23/24 05:32 Blood Pressure 222/101 H 05/23/24 05:32 Pulse Oximetry 100 05/23/24 05:32 Oxygen Delivery Room Air 05/23/24 05:32 Temperature 36.7 C 05/23/24 06:04 Pulse Rate 66 05/23/24 08:10 Respiratory Rate 12 05/23/24 08:10 Blood Pressure 186/100 H 05/23/24 08:10 Pulse Oximetry 99 05/23/24 08:10 Oxygen Delivery Room Air 05/23/24 05:32 Oxygen Flow Rate 0 05/23/24 06:01 MDM - Recheck/Abnormal Lab/Rx MDM Narrative Medical decision making narrative: PATIENT DID NOT TAKE HER BLOOD PRESSURE MEDICATION FOR MONTHS. COMPLAINING NUMBNESS RIGHT SIDE OF NECK VITAL SIGNS SHOWING BLOOD PRESSURE TO 122/101 OTHERWISE WITHIN NORMAL LIMIT PHYSICAL EXAMINATION UNREMARKABLE DIFFERENTIAL DIAGNOSIS URGENT HYPERTENSION, LESS LIKELY HYPERTENSIVE ENCEPHALOPATHY. BLOOD WORKUP TODAY INCLUDES CBC, CMP, TROPONIN, BNP, PT PTT SHOWED HEMOGLOBIN OF 8.4 COMPARED TO 8.6 SEPTEMBER 18, 2022 OTHERWISE INSIGNIFICANT ABNORMALITY URINALYSIS SHOWED NO SIGNIFICANT ABNORMALITIES CHEST X-RAY SHOWED NO ACUTE ABNORMALITIES, CT HEAD WITHOUT CONTRAST SHOWED NO ACUTE ABNORMALITIES PATIENT BLOOD PRESSURE AT THE TIME OF DISCHARGE 184/94, PATIENT RECEIVED 50 MG OF OF METOPROLOL AND 5 MG OF NORVASC PRIOR TO DISCHARGE. DIAGNOSIS: NONCOMPLIANCE WITH MEDICATIONS, UNCONTROLLED HYPERTENSION Differential Diagnosis Differential diagnosis: Likely other ( ABOVE) Medical Records Attestation: I reviewed the patient's medical records. Lab Data Attestation: I reviewed the patient's lab results. 05/23/24 07:32 05/23/24 07:32 Labs: Lab Results 05/23/24 05/23/24 Range/Units 07:32 07:36 WBC 8.8 (4.5-10.0) K/mm3 RBC 3.88 L (4.2-5.4) M/mm3 Hgb 8.4 L (12.0-15.0) g/dL Hct 28.4 L (37.0-47.0) % MCV 73.2 L (80-100) fl MCH 21.6 L (26-34) pg MCHC 29.6 L (32-36) g/dl RDW 19.7 H (11.5-14.5) % Plt Count 330 (150-375) k/mm3 MPV 9.4 (7.4-10.4) fl Immature Gran % (Auto) 0.3 (0-0.5) % Neut % (Auto) 58.6 (45.5-73.1) % Lymph % (Auto) 30.0 (18.3-44.2) % Kleberg % (Auto) 8.5 (2.6-8.5) % Eos % (Auto) 1.8 (0-4.4) % Baso % (Auto) 0.8 (0.2-1.2) % Lymph # (Auto) 2.65 (0.9-3.2) K/mm3 [place] # (Auto) 0.8 H (0.1-0.6) K/mm3 Eos # (Auto) 0.2 (0-0.3) K/mm3 Baso # (Auto) 0.1 (0.0-0.1) K/mm3 Abs Immat Gran (auto) 0.03 (0.00-0.031) K/mm3 Absolute Neuts (auto) 5.2 (1.3-6.7) K/mm3 Absolute Nucleated RBC 0.000 (0.0-0.012) K/mm3 Band Neutrophils % Not Reportable Nucleated RBC % 0.0 (0.0-0.2) % Platelet Estimate Adequate (Adequate) Polychromasia 2+ Anisocytosis 1+ Schistocytes None seen PT 13.8 (11.1-14.7) Seconds INR 1.0 APTT 24.6 (22.3-36.8) Seconds Sodium 138 (137-145) mmol/L Potassium 3.9 (3.4-5.0) mmol/L Chloride 100 (98-107) mmol/L Carbon Dioxide 29 (22-30) mmol/L Anion Gap 9 (4-12) mmol/L BUN 14 D (7-17) mg/dL Creatinine 0.76 (0.7-1.0) mg/dL Estim Creat Clear Calc 78 ml/min Estimated GFR > 60 (59 - ) Glucose 111 H (65-110) mg/dL Calcium 9.4 (8.4-10.2) mg/dL Total Bilirubin 0.6 (0.2-1.3) mg/dL AST 40 H (14-36) U/L ALT 23 (6-35) U/L Alkaline Phosphatase 108 (38-126) U/L Troponin I < 0.012 (0.000-0.034) ng/mL NT-Pro-B Natriuret Pep 40 (19.9-100) pg/mL Total Protein 8.0 (6.3-8.2) g/dL Albumin 4.1 (3.5-5.1) g/dL TSH Pending TSH (Reflex) Pending Urine Color Yellow (Yellow) Urine Appearance Clear (Clear) Urine pH 5.5 (5.0-9.0) Ur Specific [place] 1.034 (1.001-1.035) Urine Protein Trace (Negative) mg/dL Urine Glucose (UA) Negative (Negative) mg/dL Urine Ketones Trace H (Negative) mg/dL Ur Blood (Man) Negative (Negative) Urine Nitrate Negative (Negative) Urine Bilirubin Negative (Negative) Urine Urobilinogen 0.2 (<2.0) mg/dL Leukocyte Esterase Rfl Negative (Negative) RUTH/UL Urine RBC 0-2 (0-2) /hpf Urine WBC 0-5 (0-3) /hpf Ur Squamous Epith Cells Occasional (Few) /hpf Urine Bacteria None seen /hpf Urine Casts 0-2 POC Urine HCG, Qual Negative (Negative) Urine Opiates Screen Pending Urine Methadone Screen Pending Ur Barbiturates Screen Pending Ur Phencyclidine Scrn Pending Ur Amphetamine Screen Pending U Benzodiazepines Scrn Pending Urine Cocaine Screen Pending U Cannabinoids Screen Pending Imaging Data Radiologist's impression: Impressions Head CT 05/23/24 07:35 Impression: No significant abnormality seen. Chest X-Ray 05/23/24 07:36 Impression: Normal chest. ECG Data EKG #1: Attestation: I personally reviewed and interpreted this ECG as follows: ECG completion date: 05/23/24 Interpretation: NORMAL SINUS RHYTHM AT 79 BEATS PER MINUTE, BULGES CRITERIA FOR LVH, CONSIDER INFERIOR INFARCT AGE INDETERMINATE, ABNORMAL EKG Critical Care Time Critical Care Time Critical Care Time: No Discharge Plan Discharge Clinical Impression: Hypertension, uncontrolled, Paresthesia Patient Disposition: Home, Self-Care Condition: Improved Instructions: Chronic Hypertension (ED), Paresthesia (ED) Additional Instructions: RETURN IF SYMPTOMS ARE WORSENING , CALL YOUR FAMILY PHYSICIAN FOR APPOINTMENT, TAKE TYLENOL NEEDED FOR ACHES AND PAIN, CONTINUE HOME MEDICATIONS. Patient Language: Romanian Prescriptions: New amlodipine [Norvasc] 5 mg tablet 5 mg PO DAILY Qty: 30 0RF metoprolol succinate 25 mg tablet extended release 24 hr 50 mg PO DAILY Qty: 60 0RF losartan 50 mg tablet 25 mg PO DAILY Qty: 30 0RF No Action metoprolol succinate 50 mg Tablet Extended Release 24 Hr 50 mg PO DAILY amlodipine [Norvasc] 5 mg Tablet 5 mg PO QAM Qty: 30 2RF ferrous sulfate 325 mg (65 mg iron) Tablet 324 mg PO BIDWM Qty: 60 0RF losartan 25 mg Tablet 25 mg PO DAILY Qty: 30 2RF Follow-up/Referrals: PHYSICIAN NOT ON STAFF,NONSTAFF [Non-Staff] - Paul Medrano MD [Physician] - 05/26/24
[2024-05-23 07:38] LABS: BEDSIDEPREGUCG Negative (Negative)
[2024-05-23 07:41] LABS: Basophils Absolute Auto 0.1 K/mm3 (0.0-0.1); Basophils Percent Auto 0.8 % (0.2-1.2); Eosinophils Absolute Auto 0.2 K/mm3 (0-0.3); Eosinophils Percent Auto 1.8 % (0-4.4); Hematocrit 28.4 % (37.0-47.0); Hemoglobin 8.4 g/dL (12.0-15.0); Immature Granulocyte Absolute 0.03 K/mm3 (0.00-0.031); Immature Granulocyte Percent A 0.3 % (0-0.5); Lymphocytes Absolute Auto 2.65 K/mm3 (0.9-3.2); Mean Corpuscular HGB Conc 29.6 g/dl (32-36); Mean Corpuscular Hemoglobin 21.6 pg (26-34); Mean Corpuscular Volume 73.2 fl (80-100); Mean Platelet Volume 9.4 fl (7.4-10.4); Monocytes Absolute Auto 0.8 K/mm3 (0.1-0.6); Monocytes Percent Auto 8.5 % (2.6-8.5); Neutrophils Absolute Auto 5.2 K/mm3 (1.3-6.7); Neutrophils Percent Auto 58.6 % (45.5-73.1); Platelet Count Result 330 k/mm3 (150-375); Red Blood Count 3.88 M/mm3 (4.2-5.4); Red Cell Distribution Width 19.7 % (11.5-14.5); White Blood Count 8.8 K/mm3 (4.5-10.0)
[2024-05-23 07:47] LABS: Add Urine Microscopic? YES; Appearance Urine Clear (Clear); Bacteria Urine None Seen /hpf; Bilirubin Urine Negative (Negative); Blood Urine Negative (Negative); Color Urine Yellow (Yellow); Glucose Urine UA Negative (Negative); Ketones Urine Trace mg/dL (Negative); Leukocyte Esterase Ur Negative LEU/UL (Negative); Nitrate Urine Negative (Negative); Non Pathogenic Casts 0-2; Protein Urine Trace mg/dL (Negative); RBC Urine 0-2 /hpf (0-2); Specific Grav Ur 1.034 (1.001-1.035); Squamous Epithelial Cell Urine Occasional /hpf (Few); Urobilinogen Urine 0.2 mg/dL (<2.0); WBC Urine 0-5 /hpf (0-3); pH Urine 5.5 (5.0-9.0)
[2024-05-23 07:50] LABS: Alanine Aminotransferase 23 U/L (6-35); Albumin Level 4.1 g/dL (3.5-5.1); Alkaline Phosphatase 108 U/L (38-126); Anion Gap 9 mmol/L (4-12); Aspartate Amino Transferase 40 U/L (14-36); Bilirubin,Total 0.6 mg/dL (0.2-1.3); Blood Urea Nitrogen 14 mg/dL (7-17); Calcium 9.4 mg/dL (8.4-10.2); Carbon Dioxide 29 mmol/L (22-30); Chloride 100 mmol/L (98-107); Estimated CRCL calculation 78 ml/min; Estimated Glomerular Filt Rate > 60; Glucose 111 mg/dL (65-110); Potassium 3.9 mmol/L (3.4-5.0); Sodium 138 mmol/L (137-145)
[2024-05-23 07:51] LABS: Prothrombin Time 13.8 Seconds (11.1-14.7)
[2024-05-23 07:52] LABS: Partial Thromboplastin Time 24.6 Seconds (22.3-36.8)
[2024-05-23 08:02] LABS: NT Pro B Type Natriuretic Pept 40 pg/mL (19.9-100); Troponin I < 0.012 ng/mL (0.000-0.034)
[2024-05-23 08:03] LABS: Platelet Estimate Adequate (Adequate); Polychromasia 2+; Schistocytes None Seen
[2024-05-23 08:04] LABS: Anisocytosis 1+
[2024-05-23] MEDS: LABETALOL HCL INJ 100 MG/20 ML VIAL 20 MG IV PUSH (08:12)
[2024-05-23 08:48] LABS: Amphetamine Screen Urine Negative (Negative); Barbiturate Screen Urine Negative (Negative); Benzodiazepines Screen Urine Negative (Negative); Cannabinoid Screen Urine Negative (Negative); Cocaine Screen Urine Negative (Negative); Methadone Screen Urine Negative (Negative); Opiate Screen Urine Negative (Negative); Phencyclidine Screen Urine Negative (Negative)
[2024-05-23 08:57] LABS: Free T4 Free Thyroxine Reflex 1.12 ng/dL (0.78-2.19)
[2024-05-23] MEDS: amLODIPine BESYLATE 5 MG TABLET PO (09:19)
[2024-05-23] MEDS: METOPROLOL SUCCINATE EXT REL 50 MG TABCR PO (09:19)
[2024-05-23 09:41] LABS: Total Triiodothyronine (T3) 1.62 NG/ML (0.97-1.69)
== END 2024-05-23 09:30 | disposition home or self-care (01) ==
PROVIDERS: Student in an Organized Health Care Education/Training Program; Emergency Provider Emergency Medicine
DX: I10 Essential (primary) hypertension (principal); R20.2 Paresthesia of skin; F17.210 Nicotine dependence, cigarettes, uncomplicated
CPT/HCPCS: 36415; 70450; 71045; 80053; 80307; 81001; 81025; 83880; 84439; 84443; 84480; 84484; 85025; 85610; 85730; 93005; 96374; 99284; A9270

== ENCOUNTER 2024-06-01 14:41 | Emergency (ER) | payer SELFPAY ==
[2024-06-01] VITALS (7 sets, daily range): BP systolic 148–201; BP diastolic 75–99; PULSE 71–79; RESP 16–18; TEMP 36.4–36.8; O2SAT 98–100
--- NOTE | ~2024-06-01 | XR_ITS ---
XR chest 1V portable Ordering provider: Lalito Correia History: 44 years Female with . hypertension . Comparison: May 23, 2024 FINDINGS: MEDIASTINUM: The cardiac silhouette is not enlarged. LUNGS: No infiltrates, effusions or pneumothorax. OTHER: No free air under the diaphragm. IMPRESSION: No acute cardiopulmonary pathology. Reviewed, dictated and finalized at location [facility]
--- NOTE | 2024-06-01 19:18 | ECG_ITS ---
Test Date: 2024-06-01 19:25:27 Measurements Intervals [place] Rate: 71 P: 32 UT: 152 QRS: 1 QRSD: 87 T: 14 QT: 421 QTc: 460 Interpretive Statements SINUS RHYTHM POSSIBLE LEFT ATRIAL ENLARGEMENT [-0.1mV P WAVE IN V1/V2] POSSIBLE LEFT VENTRICULAR HYPERTROPHY [VOLTAGE CRITERIA PLUS LAE OR QRS WIDENING] NONSPECIFIC ST AND T-WAVE ABNORMALITY Compared to ECG 05/23/2024 06:23:34 NO SIGNIFICANT CHANGES Electronically Signed On 06-02-2024 16:24:00 REHABILITATION CONSULTANT by Cheryl Jeffrey M.D.
[2024-06-01 19:47] LABS: BEDSIDEPREGUCG Negative (Negative)
[2024-06-01 19:52] LABS: Add Urine Microscopic? YES; Appearance Urine Cloudy (Clear); Bacteria Urine None Seen /hpf; Bilirubin Urine Negative (Negative); Blood Urine Negative (Negative); Color Urine Yellow (Yellow); Glucose Urine UA 1+ mg/dL (Negative); Ketones Urine Trace mg/dL (Negative); Leukocyte Esterase Ur Negative LEU/UL (Negative); Nitrate Urine Negative (Negative); Non Pathogenic Casts 0-2; Protein Urine 1+ mg/dL (Negative); RBC Urine 0-2 /hpf (0-2); Specific Grav Ur 1.022 (1.001-1.035); Squamous Epithelial Cell Urine None Seen /hpf (Few); WBC Urine 0-5 /hpf (0-3); pH Urine 5.5 (5.0-9.0)
[2024-06-01 20:11] LABS: Basophils Absolute Auto 0.1 K/mm3 (0.0-0.1); Basophils Percent Auto 0.8 % (0.2-1.2); Eosinophils Absolute Auto 0.3 K/mm3 (0-0.3); Eosinophils Percent Auto 2.9 % (0-4.4); Hematocrit 27.1 % (37.0-47.0); Hemoglobin 8.1 g/dL (12.0-15.0); Immature Granulocyte Absolute 0.04 K/mm3 (0.00-0.031); Immature Granulocyte Percent A 0.4 % (0-0.5); Lymphocytes Absolute Auto 2.93 K/mm3 (0.9-3.2); Lymphocytes Percent Auto 26.3 % (18.3-44.2); Mean Corpuscular HGB Conc 29.9 g/dl (32-36); Mean Corpuscular Hemoglobin 21.7 pg (26-34); Mean Corpuscular Volume 72.7 fl (80-100); Monocytes Absolute Auto 0.6 K/mm3 (0.1-0.6); Monocytes Percent Auto 5.8 % (2.6-8.5); Neutrophils Absolute Auto 7.1 K/mm3 (1.3-6.7); Neutrophils Percent Auto 63.8 % (45.5-73.1); Platelet Count Result 430 k/mm3 (150-375); Red Blood Count 3.73 M/mm3 (4.2-5.4); White Blood Count 11.1 K/mm3 (4.5-10.0)
[2024-06-01 20:20] LABS: Lactic Acid Reflex 1.8 mmol/L (0.7-2.0)
[2024-06-01 20:21] LABS: Alanine Aminotransferase 22 U/L (6-35); Albumin Level 4.5 g/dL (3.5-5.1); Alkaline Phosphatase 97 U/L (38-126); Anion Gap 13 mmol/L (4-12); Aspartate Amino Transferase 37 U/L (14-36); Bilirubin,Total 0.9 mg/dL (0.2-1.3); Blood Urea Nitrogen 14 mg/dL (7-17); Calcium 9.6 mg/dL (8.4-10.2); Carbon Dioxide 21 mmol/L (22-30); Chloride 103 mmol/L (98-107); Estimated CRCL calculation 95 ml/min; Estimated Glomerular Filt Rate > 60; Glucose 175 mg/dL (65-110); Lipase 191 U/L (23-300); Magnesium 1.8 mg/dL (1.6-2.3); Potassium 3.4 mmol/L (3.4-5.0); Sodium 137 mmol/L (137-145)
[2024-06-01 20:30] LABS: Hypochromasia 2+; Microcytosis 1+ (NORMAL); Ovalocytes 1+; Platelet Estimate Increased (Adequate)
[2024-06-01 20:31] LABS: Schistocytes None Seen
--- NOTE | 2024-06-01 21:01 | ED.GENADULT ---
HPI - General Adult General Chief complaint: Recheck/Abnormal Lab/Rx Stated complaint: SENT IN BY DR SIDDIQUI Time Seen by Provider: 06/01/24 19:25 History of Present Illness HPI narrative: Patient is a 44-year-old female who presents emergency department with chief complaint of elevated blood pressure. Patient reports she was diagnosed with hypertension reports that she had a follow-up today with her primary to establish care and they did write a new prescription for her blood pressure medicine patient states she has felt a little lightheaded at times blood pressure was 200/99 initially the patient denied any focal neurological deficits denies chest pain denies shortness of breath. The patient reports that since she has arrived here in the emergency department she is feeling much better as her blood pressures come down naturally Related Data Home Medications ?Medication ?Instructions ?Recorded ?Confirmed ?Last Taken ?Type metoprolol succinate 50 mg 50 mg PO DAILY 09/17/22 05/23/24 09/16/22 09:00 History tablet,extended release 24 hr 50 MG Allergies Allergy/AdvReac Type Severity Reaction Status Date / Time No Known Allergies Allergy Verified 05/23/24 06:26 Review of Systems Review of Systems: A 10 system review of systems was completed on the patient and is negative except for what is stated in the HPI. Nursing and ancillary documentation was reviewed. [facility] Past Medical History Medical History Hypertension Surgical History Surgical History History of tubal ligation Family History Family History Sibling Diabetes mellitus Hypertension Grandparent Diabetes mellitus Hypertension Mother Hypertension Cerebrovascular accident Social History Social History Social History: Surrogate medical decision maker: Darrell Yan, spouse. Code status: Full code. Years smoked: 20 Smoking status: Current every day smoker Tobacco type: cigarettes Second hand tobacco smoke exposure: No Alcohol intake: current Drinks per week: 5 Substance use: never Lack of Transportation: No Lack of Food: Never True Current Housing: I Have Housing Concerned About Future Housing: No Difficulty Paying Gas/Electric Bills: No Difficulty Paying for Meds: No Currently Unemployed: No Education: Decline to Answer Difficulty w/ Childcare or Family Care: No Additional living arrangements comments: Lives with and 2 of their children in [place]. 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 Spiritual care concerns: No Exam Narrative: GENERAL: Well-appearing, well-nourished, and in no acute distress. HEAD: Normocephalic, atraumatic. EYES: PERRLA and EOMI. ENT: Nares clear, no rhinorrhea or epistaxis. Mucous membranes moist. NECK: Supple. CHEST: Clear to auscultation. No respiratory distress. HEART: Regular rate and rhythm. No murmur heard. Normal peripheral pulses. ABDOMEN: Soft, nontender, nondistended, normal active bowel sounds. EXTREMITIES: Normal range of motion. No edema. SKIN: Warm, dry, no rash. NEURO: No focal deficits. Alert and oriented x3. PSYCH: Normal mood and affect. Course Vital Signs Vital signs: Vital Signs Temperature 36.4 C L 06/01/24 15:08 Pulse Rate 79 06/01/24 15:08 Respiratory Rate 16 06/01/24 15:08 Blood Pressure 201/99 H 06/01/24 15:08 Pulse Oximetry 100 06/01/24 15:08 Oxygen Delivery Room Air 06/01/24 15:08 Temperature 36.8 C 06/01/24 17:25 Pulse Rate 71 06/01/24 19:00 Respiratory Rate 16 06/01/24 19:30 Blood Pressure 150/78 H 06/01/24 19:00 Pulse Oximetry 98 06/01/24 19:30 Oxygen Delivery Room Air 06/01/24 15:08 Medical Decision Making [facility] Narrative Medical decision making narrative: Differential diagnosis includes hypertensive emergency, essential hypertension, electrolyte abnormality, Laboratory studies were obtained on the patient showed a normal CBC hemoglobin was 8.1 this is similar to the patient's previous levels of. Electrolytes showed BUN of 17 and a creatinine of 0.62 liver enzymes showed normal bilirubin AST was 37 ALT was 22 urinalysis showed 1+ protein Patient is feeling better at this time plan will be to discharge the patient home a to start her new blood pressure medicines and have her keep a daily log Vital Signs Vital Signs: Vital Signs Temperature 36.4 C L 06/01/24 15:08 Pulse Rate 79 06/01/24 15:08 Respiratory Rate 16 06/01/24 15:08 Blood Pressure 201/99 H 06/01/24 15:08 Pulse Oximetry 100 06/01/24 15:08 Oxygen Delivery Room Air 06/01/24 15:08 Temperature 36.8 C 06/01/24 17:25 Pulse Rate 71 06/01/24 19:00 Respiratory Rate 16 06/01/24 19:30 Blood Pressure 150/78 H 06/01/24 19:00 Pulse Oximetry 98 06/01/24 19:30 Oxygen Delivery Room Air 06/01/24 15:08 Lab Data 06/01/24 20:06 06/01/24 20:06 Labs: Lab Results 06/01/24 06/01/24 06/01/24 Range/Units 19:43 19:46 20:06 WBC 11.1 H (4.5-10.0) K/mm3 RBC 3.73 L (4.2-5.4) M/mm3 Hgb 8.1 L (12.0-15.0) g/dL Hct 27.1 L (37.0-47.0) % MCV 72.7 L (80-100) fl MCH 21.7 L (26-34) pg MCHC 29.9 L (32-36) g/dl RDW 20.0 H (11.5-14.5) % Plt Count 430 H (150-375) k/mm3 MPV 10.0 (7.4-10.4) fl Immature Gran % (Auto) 0.4 (0-0.5) % Neut % (Auto) 63.8 (45.5-73.1) % Lymph % (Auto) 26.3 (18.3-44.2) % [place] % (Auto) 5.8 (2.6-8.5) % Eos % (Auto) 2.9 (0-4.4) % Baso % (Auto) 0.8 (0.2-1.2) % Lymph # (Auto) 2.93 (0.9-3.2) K/mm3 [place] # (Auto) 0.6 (0.1-0.6) K/mm3 Eos # (Auto) 0.3 (0-0.3) K/mm3 Baso # (Auto) 0.1 (0.0-0.1) K/mm3 Abs Immat Gran (auto) 0.04 H (0.00-0.031) K/mm3 Absolute Neuts (auto) 7.1 H (1.3-6.7) K/mm3 Absolute Nucleated RBC 0.000 (0.0-0.012) K/mm3 Band Neutrophils % Not Reportable Nucleated RBC % 0.0 (0.0-0.2) % Platelet Estimate Increased (Adequate) Hypochromasia 2+ Microcytosis 1+ (NORMAL) Ovalocytes 1+ Schistocytes None seen Sodium 137 (137-145) mmol/L Potassium 3.4 (3.4-5.0) mmol/L Chloride 103 (98-107) mmol/L Carbon Dioxide 21 L (22-30) mmol/L Anion Gap 13 H (4-12) mmol/L BUN 14 (7-17) mg/dL Creatinine 0.62 L (0.7-1.0) mg/dL Estim Creat Clear Calc 95 ml/min Estimated GFR > 60 (59 - ) Glucose 175 H (65-110) mg/dL Lactic Acid 1.8 (0.7-2.0) mmol/L Calcium 9.6 (8.4-10.2) mg/dL Magnesium 1.8 (1.6-2.3) mg/dL Total Bilirubin (0.2-1.3) mg/dL AST (14-36) U/L ALT (6-35) U/L Alkaline Phosphatase (38-126) U/L Total Protein (6.3-8.2) g/dL Albumin (3.5-5.1) g/dL Lipase (23-300) U/L Urine Color Yellow (Yellow) Urine Appearance Cloudy H (Clear) Urine pH 5.5 (5.0-9.0) Ur Specific [place] 1.022 (1.001-1.035) Urine Protein 1+ H (Negative) mg/dL Urine Glucose (UA) 1+ H (Negative) mg/dL Urine Ketones Trace H (Negative) mg/dL Ur Blood (Man) Negative (Negative) Urine Nitrate Negative (Negative) Urine Bilirubin Negative (Negative) Urine Urobilinogen 1.0 (<2.0) mg/dL Leukocyte Esterase Rfl Negative (Negative) RUTH/UL Urine RBC 0-2 (0-2) /hpf Urine WBC 0-5 (0-3) /hpf Ur Squamous Epith Cells None seen (Few) /hpf Urine Bacteria None seen /hpf Urine Casts 0-2 POC Urine HCG, Qual Negative (Negative) 06/01/24 06/01/24 Range/Units 20:06 20:06 WBC (4.5-10.0) K/mm3 RBC (4.2-5.4) M/mm3 Hgb (12.0-15.0) g/dL Hct (37.0-47.0) % MCV (80-100) fl MCH (26-34) pg MCHC (32-36) g/dl RDW (11.5-14.5) % Plt Count (150-375) k/mm3 MPV (7.4-10.4) fl Immature Gran % (Auto) (0-0.5) % Neut % (Auto) (45.5-73.1) % Lymph % (Auto) (18.3-44.2) % [place] % (Auto) (2.6-8.5) % Eos % (Auto) (0-4.4) % Baso % (Auto) (0.2-1.2) % Lymph # (Auto) (0.9-3.2) K/mm3 [place] # (Auto) (0.1-0.6) K/mm3 Eos # (Auto) (0-0.3) K/mm3 Baso # (Auto) (0.0-0.1) K/mm3 Abs Immat Gran (auto) (0.00-0.031) K/mm3 Absolute Neuts (auto) (1.3-6.7) K/mm3 Absolute Nucleated RBC (0.0-0.012) K/mm3 Band Neutrophils % Nucleated RBC % (0.0-0.2) % Platelet Estimate (Adequate) Hypochromasia Microcytosis (NORMAL) Ovalocytes Schistocytes Sodium (137-145) mmol/L Potassium (3.4-5.0) mmol/L Chloride (98-107) mmol/L Carbon Dioxide (22-30) mmol/L Anion Gap (4-12) mmol/L BUN (7-17) mg/dL Creatinine (0.7-1.0) mg/dL Estim Creat Clear Calc ml/min Estimated GFR (59 - ) Glucose (65-110) mg/dL Lactic Acid (0.7-2.0) mmol/L Calcium (8.4-10.2) mg/dL Magnesium Cancelled (1.6-2.3) mg/dL Total Bilirubin 0.9 (0.2-1.3) mg/dL AST 37 H (14-36) U/L ALT 22 (6-35) U/L Alkaline Phosphatase 97 (38-126) U/L Total Protein 8.0 (6.3-8.2) g/dL Albumin 4.5 (3.5-5.1) g/dL Lipase 191 Cancelled (23-300) U/L Urine Color (Yellow) Urine Appearance (Clear) Urine pH (5.0-9.0) Ur Specific [place] (1.001-1.035) Urine Protein (Negative) mg/dL Urine Glucose (UA) (Negative) mg/dL Urine Ketones (Negative) mg/dL Ur Blood (Man) (Negative) Urine Nitrate (Negative) Urine Bilirubin (Negative) Urine Urobilinogen (<2.0) mg/dL Leukocyte Esterase Rfl (Negative) RUTH/UL Urine RBC (0-2) /hpf Urine WBC (0-3) /hpf Ur Squamous Epith Cells (Few) /hpf Urine Bacteria /hpf Urine Casts POC Urine HCG, Qual (Negative) Discharge Plan Discharge Clinical Impression: Hypertension Patient Disposition: Home, Self-Care Condition: Stable Instructions: Antibiotic Form, Hypertension (ED) Additional Instructions: Please keep a daily log of your blood pressures he recommended that you take your blood pressure in the morning and the evening keep a log of this. Patient Language: Uzbek Prescriptions: No Action metoprolol succinate 50 mg Tablet Extended Release 24 Hr 50 mg PO DAILY amlodipine [Norvasc] 5 mg Tablet 5 mg PO QAM Qty: 30 2RF ferrous sulfate 325 mg (65 mg iron) Tablet 324 mg PO BIDWM Qty: 60 0RF losartan 25 mg Tablet 25 mg PO DAILY Qty: 30 2RF amlodipine [Norvasc] 5 mg tablet 5 mg PO DAILY Qty: 30 0RF metoprolol succinate 25 mg tablet extended release 24 hr 50 mg PO DAILY Qty: 60 0RF losartan 50 mg tablet 25 mg PO DAILY Qty: 30 0RF Follow-up/Referrals: Paul Siddiqui MD [Primary Care Provider] - Time of Disposition: 21:07
== END 2024-06-01 21:37 | disposition home or self-care (01) ==
PROVIDERS: Emergency Medicine; Emergency Provider Emergency Medicine; PCP Emergency Medicine
DX: I10 Essential (primary) hypertension (principal); F17.210 Nicotine dependence, cigarettes, uncomplicated; Z79.899 Other long term (current) drug therapy; R94.31 Abnormal electrocardiogram [ECG] [EKG]
CPT/HCPCS: 36415; 71045; 80053; 81001; 81025; 83605; 83690; 83735; 85025; 93005; 99283